=== PATIENT | female | born 1945 | race Caucasian/White ===

== ENCOUNTER 2016-12-14 14:47 | Emergency (ER) | payer OTHER ==
[2016-12-14] MEDS ORDERED: HYDROmorphONE/DILAUDID 1 MG/ML SYR IVP ONE (15:13)
--- NOTE | 2016-12-14 15:16 | EDPHY ---
H & P Stated Complaint: nontraumatic r shoulder and arm pain x 1 week/has lyphedema r/ t br cancer Time Seen by Provider: 12/14/16 14:59 HPI/ROS: CHIEF COMPLAINT: Right shoulder blade pain HISTORY OF PRESENT ILLNESS: Patient is a 71-year-old female with a remote history of bilateral breast cancer who comes to the emergency department complaining of right-sided scapular pain for the last week. She denies any trauma or falls. She states that it hurts particularly when she is lying down. She has not had any tingling numbness or weakness. She is ambulating without difficulty. No bowel or bladder abnormalities. Also hurts when she looks up. Some pain with movement of her arm. She denies chest pain or shortness of breath. She denies abdominal pain. No fevers. No GI symptoms. REVIEW OF SYSTEMS: Constitutional: denies: chills, fever, recent illness, recent injury EENTM: denies: blurred vision, double vision, nose congestion Respiratory: denies: cough, shortness of breath Cardiac: denies: chest pain, irregular heart rate, lightheadedness, palpitations Gastrointestinal/Abdominal: denies: abdominal pain, diarrhea, nausea, vomiting, blood streaked stools Genitourinary: denies: dysuria, frequency, hematuria, pain Musculoskeletal: See HPI Skin: denies: lesions, rash, jaundice, bruising Neurological: denies: headache, numbness, paresthesia, tingling, dizziness, weakness Hematologic/Lymphatic: denies: blood clots, easy bleeding, easy bruising Immunologic/allergic: denies: HIV/AIDS, transplant EXAM: GENERAL: Well-appearing, well-nourished and in no acute distress. HEAD: Atraumatic, normocephalic. EYES: Pupils equal round and reactive to light, extraocular movements intact, sclera anicteric, conjunctiva are normal. ENT: TMs normal, nares patent, oropharynx clear without exudates. Moist mucous membranes. NECK: Normal range of motion, supple without lymphadenopathy or JVD. LUNGS: Breath sounds clear to auscultation bilaterally and equal. No wheezes rales or rhonchi. HEART: Regular rate and rhythm without murmurs, rubs or gallops. ABDOMEN: Soft, nontender, normoactive bowel sounds. No guarding, no rebound. No masses appreciated. BACK: No CVA tenderness, no spinal tenderness, step-offs or deformities EXTREMITIES: Normal range of motion, mild edema right arm which is baseline secondary to surgery, pain behind shoulder blade, exacerbated slightly with movements. No pain at rest unless she is lying flat which is the worst position for her. No clubbing or cyanosis. NEUROLOGICAL: Cranial nerves II through XII grossly intact. Normal speech, normal gait. 5/5 strength, normal movement in all extremities, normal sensation PSYCH: Normal mood, normal affect. SKIN: Warm, dry, normal turgor, no visible rashes or lesions. Source: Patient Exam Limitations: No limitations - Personal History Current Tetanus/Diphtheria Vaccine: Yes Tetanus Vaccine Date: <10 YRS - Medical/Surgical History Hx Asthma: No Hx Chronic Respiratory Disease: No Hx Diabetes: No Hx Cardiac Disease: No Hx Renal Disease: No Hx Cirrhosis: No Hx Alcoholism: No Hx HIV/AIDS: No Hx Splenectomy or Spleen Trauma: No Other PMH: PMH: hypothyroid, thyroid CA,Breast ca/choly,. PSH:rigth hip replacementspinal fusion, - Family History Significant Family History: No pertinent family hx - Social History Smoking Status: Light smoker Alcohol Use: Sober Drug Use: None Constitutional: Initial Vital Signs Temperature (C) 36.5 C 12/14/16 14:52 Heart Rate 96 12/14/16 14:52 Respiratory Rate 17 12/14/16 14:52 Blood Pressure 126/80 H 12/14/16 14:52 O2 Sat (%) 94 12/14/16 14:52 O2 Delivery Mode Room Air Allergies/Adverse Reactions: Hgkqyto-Lmy-Tfc Reductase Inhibitor Allergy (Severe, Verified 12/14/16 14:50) MUSCLE/ JOINT PAIN scopolamine Allergy (Verified 12/14/16 14:50) Other-Enter Comments MAXIDE Allergy (Severe, Uncoded 07/02/12 12:41) ACUTE KIDNEY FAILURE Home Medications: Medication Instructions Recorded Omeprazole [Prilosec 20 mg] 40 mg PO DAILY 05/15/14 Acetaminophen [Tylenol 325mg (*)] 325 - 650 mg PO Q4 PRN #0 tab 07/20/15 FLUoxetine [Prozac 20 MG (*)] 40 mg PO DAILY #0 cap 07/20/15 Ibuprofen [Motrin (*)] 600 mg PO Q6 PRN #0 tab 07/20/15 Levothyroxine [Synthroid 137 mcg 137 mcg PO DAILY #0 tab 07/20/15 (*)] Valsartan [Diovan (*)] 320 mg PO DAILY #0 tab 07/20/15 Hydrocodone/APAP 5/325 [[place] 1 - 2 tab PO Q4H PRN #14 tab 12/14/16 5/325 (RX)] Medical Decision Making - Diagnostics EKG Interpretation: An EKG obtained and was read and documented in trace view. Please see trace view for full reading and report. Sinus rhythm, right axis deviation, unchanged from previous Imaging Results: Imaging Impressions Cervical Spine MRI 12/14/16 15:12 Impression: Multilevel degenerative disk and degenerative joint disease cervical spine. The most significant level is at C6-C7 where there is a right lateral protrusion, osteophytosis, and uncovertebral joint hypertrophy causing severe right neural foraminal narrowing. Results called and discussed with Naun Wei at 1710 hours 14 December 2016. Thoracic Spine MRI 12/14/16 15:12 Impression: 1. No evidence for metastatic disease. 2. Benign dural calcifications posteriorly at T9-T10 with no evidence for abnormal enhancement. 3. No significant spinal canal or neural foraminal encroachment in the thoracic spine. Results called and discussed with Naun Wei MD on December 14, 2016 at 1712 hours. Imaging: Discussed imaging studies w/ call box wirer Radiologist ED Course/Re-evaluation: 5:15 p.m. we discussed the imaging results. The patient and are reassured. I will treat her with pain medication until her follow-up appointment on Friday with spine [place]. She ready gets injections in her knees and occasion her back for other conditions. We discussed indications for returning here. Differential Diagnosis: Partial list of the Differential diagnosis considered include but were not limited to; degenerative disc disease, neuropathy, radiculopathy, rotator cuff injury, contusion and although unlikely based on the history and physical exam, I also considered fracture, PE, acute coronary disease. I discussed these differential diagnoses and the plan with the patient as well as the usual and expected course. The patient understands that the diagnosis is provisional and that in medicine we are not always correct and that further workup is often warranted. Usual and customary warnings were given. All of the patient's questions were answered. The patient was instructed to return to the emergency department should the symptoms at all worsen or return, otherwise to followup with the physician as we discussed. - Data Points Laboratory Results: Laboratory Results 12/14/16 15:40 12/14/16 15:40 12/14/16 12/14/16 15:40 15:40 WBC 5.53 10^3/uL 10^3/uL (3.80-9.50) RBC 4.12 10^6/uL L 10^6/uL (4.18-5.33) Hgb 13.6 g/dL g/dL (12.6-16.3) Hct 39.6 % % (38.0-47.0) MCV 96.1 fL fL (81.5-99.8) MCH 33.0 pg pg (27.9-34.1) MCHC 34.3 g/dL g/dL (32.4-36.7) RDW 13.3 % % (11.5-15.2) Plt Count 233 10^3/uL 10^3/uL (150-400) MPV 9.4 fL fL (8.7-11.7) Neut % (Auto) 65.0 % % (39.3-74.2) Lymph % (Auto) 22.1 % % (15.0-45.0) [place] % (Auto) 6.5 % % (4.5-13.0) Eos % (Auto) 5.1 % % (0.6-7.6) Baso % (Auto) 0.9 % % (0.3-1.7) Nucleat RBC Rel Count 0.0 % % (0.0-0.2) Absolute Neuts (auto) 3.60 10^3/uL 10^3/uL (1.70-6.50) Absolute Lymphs (auto) 1.22 10^3/uL 10^3/uL (1.00-3.00) Absolute Monos (auto) 0.36 10^3/uL 10^3/uL (0.30-0.80) Absolute Eos (auto) 0.28 10^3/uL 10^3/uL (0.03-0.40) Absolute Basos (auto) 0.05 10^3/uL 10^3/uL (0.02-0.10) Absolute Nucleated RBC 0.00 10^3/uL 10^3/uL (0-0.01) Immature Gran % 0.4 % % (0.0-1.1) Immature Gran # 0.02 10^3/uL 10^3/uL (0.00-0.10) Sodium 136 mEq/L mEq/L (134-144) Potassium 4.4 mEq/L mEq/L (3.5-5.2) Chloride 107 mEq/L mEq/L (97-110) Carbon Dioxide 19 mEq/l L mEq/l (22-31) Anion Gap 10 mEq/L mEq/L (8-16) BUN 23 mg/dL mg/dL (7-23) Creatinine 1.2 mg/dL H mg/dL (0.6-1.0) Estimated GFR 44 Glucose 126 mg/dL H mg/dL (70-100) Calcium 8.5 mg/dL mg/dL (8.5-10.4) Troponin I < 0.012 ng/mL ng/mL (0-0.034) Medications Given: Discontinued Medications Hydrocodone Bitart/Acetaminophen ([place] 5/325mg Prepack#6) 1 btl TAKEHOME EDNOW ONE Stop: 12/14/16 17:53 Last Admin: 12/14/16 17:53 Dose: 1 btl Hydromorphone HCl (Dilaudid) 0.5 mg IVP EDNOW ONE Stop: 12/14/16 15:14 Last Admin: 12/14/16 15:43 Dose: Not Given Departure - Departure Disposition: Home, Routine, Self-Care Clinical Impression: Degenerative disc disease, cervical Condition: Fair Instructions: Degenerative Disc Disease (ED) Referrals: Kim Peterson MD [Primary Care Provider] - As per Instructions Enoc Hurley MD [Medical Doctor] - As per Instructions Prescriptions: Hydrocodone/APAP 5/325 [Franklin 5/325 (RX)] 1 - 2 tab PO Q4H PRN #14 tab PRN Reason: Pain, Moderate
--- NOTE | 2016-12-14 15:35 | CPEKG ---
Heart Rate: 90 RR Interval: 667 P-R Interval: 160 QRSD Interval: 100 QT Interval: 388 QTC Interval: 475 P [place]: 71 QRS [place]: 105 T Wave [place]: 4 EKG Severity - BORDERLINE ECG - EKG Impression: SINUS RHYTHM EKG Impression: PROBABLE LEFT ATRIAL ABNORMALITY EKG Impression: RIGHT AXIS DEVIATION EKG Impression: Similar to previous Electronically Signed By: Naun Wei 14-Dec-2016 15:53:11
[2016-12-14 15:48] LABS: % IMMATURE GRANULYOCYTES 0.4 % (0.0-1.1); ABSOLUTE IMMATURE GRANULOCYTES 0.02 10^3/uL (0.00-0.10); ADD DIFF? NO; ADD MORPH? NO; ADD SCAN? NO; ATYPICAL LYMPHOCYTE FLAG 10 (0-99); FRAGMENT RBC FLAG 0 (0-99); HEMATOCRIT 39.6 % (38.0-47.0); HEMOGLOBIN 13.6 g/dL (12.6-16.3); LEFT SHIFT FLG 0 (0-99); LIPEMIA HEMOLYSIS FLAG 90 (0-99); MEAN CELL HEMOGLOBIN CONCENTR. 34.3 g/dL (32.4-36.7); MEAN CELL VOLUME 96.1 fL (81.5-99.8); MEAN PLATELET VOLUME 9.4 fL (8.7-11.7); PLATELET CLUMPS FLAG 0 (0-99); PLATELET COUNT 233 10^3/uL (150-400); RED BLOOD CELL COUNT 4.12 10^6/uL (4.18-5.33); RED CELL DISTRIBUTION WIDTH 13.3 % (11.5-15.2)
[2016-12-14 16:08] LABS: POTASSIUM 4.4 mEq/L (3.5-5.2)
[2016-12-14 16:09] LABS: ANION GAP 10 mEq/L (8-16); CALCIUM 8.5 mg/dL (8.5-10.4); CARBON DIOXIDE 19 mEq/l (22-31); CHLORIDE 107 mEq/L (97-110); CREATININE 1.2 mg/dL (0.6-1.0); GLOMERULAR FILTRATION RATE 44; GLUCOSE 126 mg/dL (70-100); SODIUM 136 mEq/L (134-144)
[2016-12-14 16:20] LABS: TROPONIN I < 0.012 ng/mL (0-0.034)
[2016-12-14] MEDS ORDERED: GADOBUTROL 10 ML VIAL IVP ONE (16:43)
[2016-12-14 17:07] VITALS: O2SAT 95
[2016-12-14] MEDS ORDERED: HYDROCOD/APAP 5/325 PREPACK#6 BTL TAKEHOME ONE ×2 (17:50→17:52)
[2016-12-14 17:55] VITALS: BP 145/86; PULSE 81; RESP 16; TEMP 98.4
== END 2016-12-14 17:53 | disposition home or self-care (01) ==
DX: M50.30 Other cervical disc degeneration, unspecified cervical region (principal); F17.200 Nicotine dependence, unspecified, uncomplicated; Z85.3 Personal history of malignant neoplasm of breast; Z85.850 Personal history of malignant neoplasm of thyroid
CPT/HCPCS: 86300-90; A9585

== ENCOUNTER → 2016-12-26 | Outpatient (CLI) | payer OTHER | LOC: FIMAGING 09:50 | PROVIDERS: ATTEND Physician Assistant | DX: Z13.820 Encounter for screening for osteoporosis (principal); Z78.0 Asymptomatic menopausal state; C50.919 Malignant neoplasm of unspecified site of unspecified female breast ==

== ENCOUNTER → 2017-02-23 | Outpatient (CLI) | payer OTHER | LOC: BMCIMAGING 11:59 | PROVIDERS: ATTEND Emergency Medicine | DX: R05 Cough (principal); R09.89 Other specified symptoms and signs involving the circulatory and respiratory systems ==

== ENCOUNTER 2017-06-09 17:23 | Emergency (ER) | payer OTHER ==
[2017-06-09 17:36] VITALS: O2SAT 96
--- NOTE | 2017-06-09 18:21 | EDPHY ---
H & P Stated Complaint: Soreness R calf today;no trauma; sent to have US Time Seen by Provider: 06/09/17 17:44 HPI/ROS: CHIEF COMPLAINT: Right calf pain HISTORY OF PRESENT ILLNESS: The patient presents to the ED for evaluation of a 1 day history of right calf pain. The patient does have a history of superficial thrombophlebitis but denies history of DVT. The patient has a history of prior cancer including breast and thyroid. These have been treated. The patient denies any chest pain or shortness of breath. She denies fever, cough or congestion. She denies acute numbness or weakness. The patient has no history of trauma. The patient does complain of moderate tenderness to palpation along the medial aspect of her right calf. REVIEW OF SYSTEMS: A comprehensive 10 point review of systems is otherwise negative aside from elements mentioned in the history of present illness. Source: Patient Exam Limitations: No limitations - Personal History Tetanus Vaccine Date: <10 YRS - Medical/Surgical History Hx Asthma: No Hx Chronic Respiratory Disease: No Hx Diabetes: No Hx Cardiac Disease: No Hx Renal Disease: No Hx Cirrhosis: No Hx Alcoholism: No Hx HIV/AIDS: No Hx Splenectomy or Spleen Trauma: No Other PMH: hypothyroid, thyroid CA,Breast ca/choly,. right hip replacementspinal fusion, arthritis - Social History Smoking Status: Current every day smoker - Physical Exam Exam: General Appearance: Alert, no distress Eyes: Pupils equal and round no pallor or injection ENT, Mouth: Mucous membranes moist Respiratory: There are no retractions, lungs are clear to auscultation Cardiovascular: Regular rate and rhythm Gastrointestinal: Abdomen is soft and nontender, no masses, bowel sounds normal Neurological: A&O, normal motor function, normal sensory exam, normal cranial nerves Skin: Warm and dry, no rashes Musculoskeletal: Neck is supple nontender Extremities: Mild tenderness to palpation along the medial aspect of the right calf which appears to be most consistent with a superficial venous thrombosis. Psychiatric: Patient is oriented X 3, there is no agitation Constitutional: Initial Vital Signs Temperature (C) 36.6 C 06/09/17 17:32 Heart Rate 88 06/09/17 17:32 Respiratory Rate 18 06/09/17 17:32 Blood Pressure 148/70 H 06/09/17 17:32 O2 Sat (%) 96 06/09/17 17:32 O2 Delivery Mode Room Air Allergies/Adverse Reactions: scopolamine Allergy (Intermediate, Verified 06/09/17 17:31) Other-Enter Comments Atbfqkh-Bia-Frl Reductase Inhibitor Allergy (Intermediate, Verified 06/09/17 17: 31) MUSCLE/ JOINT PAIN MAXIDE Allergy (Severe, Uncoded 07/02/12 12:41) ACUTE KIDNEY FAILURE Home Medications: Medication Instructions Recorded Diclofenac Sodium [Voltaren 75 MG 75 mg PO 06/09/17 (*)] FLUoxetine [Prozac 10 MG (*)] 06/09/17 Levothyroxine [Synthroid 100 mcg 100 mcg PO DAILY06 06/09/17 (*)] Omeprazole [Prilosec 20 mg] 20 mg PO DAILY 06/09/17 Valsartan [Diovan (*)] 40 mg PO 06/09/17 Medical Decision Making - Diagnostics Imaging Results: Right lower extremity ultrasound: Images reviewed by myself and discussed with radiologist, superficial thrombophlebitis noted. No evidence of DVT. ED Course/Re-evaluation: The patient presents to the ED with obvious superficial venous thrombophlebitis. She does have some deeper calf tenderness and a stat ultrasound of the extremity was ordered to exclude DVT. The patient was noted to be neurologically intact. She has brisk pulses noted in her dorsalis pedis and posterior tibial pulses. The patient has no clinical evidence of a significant cellulitis or abscess. The patient has superficial thrombophlebitis noted on her ultrasound. She has no evidence of a DVT. Patient has been advised to use NSAIDs for management of pain in addition to hot compress and ice packs. She is advised to return to the emergency department for repeat ultrasound in 2 weeks for any worsening pain, persistent swelling or other concerns. Differential Diagnosis: Differential diagnosis considered includes superficial thrombophlebitis, DVT, cellulitis, abscess Departure - Departure Disposition: Home, Routine, Self-Care Clinical Impression: Superficial phlebitis of right leg Condition: Good Instructions: Superficial Thrombophlebitis (ED) Additional Instructions: 1. Take Ibuprofen or Motrin 600 mg by mouth three times a day. 2. Warm compresses and ice pack as needed for comfort. 3. Your ultrasound demonstrates no evidence of a deep vein thrombosis. You have superficial phlebitis. 4. Please return for a repeat ultrasound in 2 weeks for any worsening calf pain , swelling or persistent pain. Referrals: Kim Peterson MD [Primary Care Provider] - As per Instructions
[2017-06-09 19:35] VITALS: BP 146/89; PULSE 67; RESP 19; TEMP 98.2
== END 2017-06-09 19:35 | disposition home or self-care (01) ==
DX: I80.01 Phlebitis and thrombophlebitis of superficial vessels of right lower extremity (principal); F17.200 Nicotine dependence, unspecified, uncomplicated; Z85.3 Personal history of malignant neoplasm of breast

== ENCOUNTER 2017-07-07 08:28 | Observation (INO) | payer OTHER ==
--- NOTE | 2017-07-07 08:33 | EDPHY ---
H & P Time Seen by Provider: 07/07/17 08:33 HPI/ROS: CHIEF COMPLAINT: Right leg pain HISTORY OF PRESENT ILLNESS: The patient presents to the ED with acute right leg pain. The patient reportedly developed acute right thigh pain after she stood up from the toilet earlier today. The patient does have a prior history of a right hip replacement. The patient denies any fall or trauma. The patient denies acute numbness or weakness. She has moderate pain with any attempted ambulation in her right leg. The patient is not anticoagulated. The patient has not been able to weight bear since the injury. REVIEW OF SYSTEMS: A comprehensive 10 point review of systems is otherwise negative aside from elements mentioned in the history of present illness. Source: Patient Exam Limitations: No limitations - Personal History Tetanus Vaccine Date: <10 YRS - Medical/Surgical History Hx Asthma: No Hx Chronic Respiratory Disease: No Hx Diabetes: No Hx Cardiac Disease: No Hx Renal Disease: No Hx Cirrhosis: No Hx Alcoholism: No Hx HIV/AIDS: No Hx Splenectomy or Spleen Trauma: No Other PMH: hypothyroid, thyroid CA,Breast ca/choly,. right hip replacementspinal fusion, arthritis - Social History Smoking Status: Current every day smoker - Physical Exam Exam: General Appearance: Alert, no distress Eyes: Pupils equal and round no pallor or injection ENT, Mouth: Mucous membranes moist Respiratory: There are no retractions, lungs are clear to auscultation Cardiovascular: Regular rate and rhythm Gastrointestinal: Abdomen is soft and nontender, no masses, bowel sounds normal Neurological: A&O, normal motor function, normal sensory exam, normal cranial nerves Skin: Warm and dry, no rashes Musculoskeletal: Neck is supple nontender Extremities: Tenderness to palpation noted along the medial aspect of the right thigh, no palpable deformity, 2+ dorsalis pedis and posterior tibial pulse noted bilaterally Constitutional: Initial Vital Signs Temperature (C) 36.7 C 07/07/17 08:34 Heart Rate 83 07/07/17 08:34 Respiratory Rate 16 07/07/17 08:34 Blood Pressure 147/71 H 07/07/17 08:34 O2 Sat (%) 94 07/07/17 08:34 O2 Delivery Mode Room Air Allergies/Adverse Reactions: scopolamine Allergy (Intermediate, Verified 06/09/17 17:31) Other-Enter Comments Vktwceg-Dxb-Qcc Reductase Inhibitor Allergy (Intermediate, Verified 06/09/17 17: 31) MUSCLE/ JOINT PAIN MAXIDE Allergy (Severe, Uncoded 07/02/12 12:41) ACUTE KIDNEY FAILURE Home Medications: Medication Instructions Recorded Omeprazole [Prilosec 20 mg] 20 mg PO DAILY 06/09/17 Acetaminophen [Tylenol 325mg (*)] 325 mg PO DAILY PRN 07/07/17 Cholecalciferol Vit D3 [Vitamin D3 2,000 units PO DAILY 07/07/17 2000 units tab (OTC)] Cyanocobalamin [Vitamin B12 (*)] 1,000 mcg PO DAILY 07/07/17 Fluoxetine HCl [Prozac 40 mg] 40 mg PO DAILY 07/07/17 Levothyroxine [Synthroid 137 mcg 137 mcg PO DAILY06 07/07/17 (*)] Propylene Glycol/Peg 400 [Systane 1 drop EACHEYE DAILY PRN 07/07/17 0.3-0.4% Eye Drops] Valsartan/Hydrochlorothiazide 1 each PO DAILY 07/07/17 [Valsartan-Hctz 80-12.5 mg Tab] Medical Decision Making - Diagnostics Imaging Results: Imaging Impressions Femur X-Ray 07/07/17 08:52 Impression: 1. No definite fracture notified 2. Subtle contour regularity of the medial right inferior pubic ramus, which could be projectional or posttraumatic. 3. Increased osteoarthritis in the knee. Findings discussed with Margarito Gagnon 07/07/2017 at 9:30. ED Course/Re-evaluation: The patient presents to the ED with complaints of right thigh pain following an injury she sustained while standing up. The patient has palpable tenderness along her right quadriceps. The patient's extensor mechanism is intact. She is unable to hold her leg in full extension secondary to pain. The patient was noted to be neurovascularly intact throughout the right lower extremity. The patient was taken for an x-ray which demonstrated no evidence of a femur fracture or hardware failure. The patient had an IV established. She received half a mg of Ativan, 1 gm of acetaminophen and a lidocaine patch. The patient is unable to ambulate secondary to pain is clearly a fall risk. I do feel that she will require admission to the hospital for in-patient PT OT evaluation and possible orthopedic consultation. Consultation was made with the hospitalist service at 9:40 a.m.. She will be admitted by Dr. Espinosa. Differential Diagnosis: Differential diagnosis considered includes periprosthetic fracture, extensor mechanism injury, quadriceps muscle strain - Data Points Laboratory Results: Laboratory Results 07/07/17 09:30 07/07/17 09:30 07/07/17 07/07/17 09:30 09:30 WBC 5.31 10^3/uL 10^3/uL (3.80-9.50) RBC 4.42 10^6/uL 10^6/uL (4.18-5.33) Hgb 14.7 g/dL g/dL (12.6-16.3) Hct 41.6 % % (38.0-47.0) MCV 94.1 fL fL (81.5-99.8) MCH 33.3 pg pg (27.9-34.1) MCHC 35.3 g/dL g/dL (32.4-36.7) RDW 13.8 % % (11.5-15.2) Plt Count 250 10^3/uL 10^3/uL (150-400) MPV 9.2 fL fL (8.7-11.7) Neut % (Auto) 73.7 % % (39.3-74.2) Lymph % (Auto) 14.7 % L % (15.0-45.0) [place] % (Auto) 7.5 % % (4.5-13.0) Eos % (Auto) 2.8 % % (0.6-7.6) Baso % (Auto) 0.9 % % (0.3-1.7) Nucleat RBC Rel Count 0.0 % % (0.0-0.2) Absolute Neuts (auto) 3.91 10^3/uL 10^3/uL (1.70-6.50) Absolute Lymphs (auto) 0.78 10^3/uL L 10^3/uL (1.00-3.00) Absolute Monos (auto) 0.40 10^3/uL 10^3/uL (0.30-0.80) Absolute Eos (auto) 0.15 10^3/uL 10^3/uL (0.03-0.40) Absolute Basos (auto) 0.05 10^3/uL 10^3/uL (0.02-0.10) Absolute Nucleated RBC 0.00 10^3/uL 10^3/uL (0-0.01) Immature Gran % 0.4 % % (0.0-1.1) Immature Gran # 0.02 10^3/uL 10^3/uL (0.00-0.10) Sodium 140 mEq/L mEq/L (134-144) Potassium 4.5 mEq/L mEq/L (3.5-5.2) Chloride 107 mEq/L mEq/L (97-110) Carbon Dioxide 24 mEq/l mEq/l (22-31) Anion Gap 9 mEq/L mEq/L (8-16) BUN 18 mg/dL mg/dL (7-23) Creatinine 1.0 mg/dL mg/dL (0.6-1.0) Estimated GFR 54 Glucose 111 mg/dL H mg/dL (70-100) Calcium 8.9 mg/dL mg/dL (8.5-10.4) Medications Given: Discontinued Medications Acetaminophen (Tylenol) 1,000 mg PO EDNOW ONE Stop: 07/07/17 09:38 Last Admin: 07/07/17 09:48 Dose: 1,000 mg Ibuprofen (Motrin) 600 mg PO EDNOW ONE Stop: 07/07/17 09:42 Last Admin: 07/07/17 09:48 Dose: 600 mg Lidocaine (Lidoderm 5%) 1 ea TD EDNOW ONE Stop: 07/07/17 09:38 Last Admin: 07/07/17 09:49 Dose: 1 ea Lorazepam (Ativan Injection) 0.5 mg IVP EDNOW ONE Stop: 07/07/17 09:38 Last Admin: 07/07/17 09:49 Dose: 0.5 mg Departure - Departure Disposition: [facility] Inpatient Acute Clinical Impression: Injury of quadriceps muscle Condition: Good
[2017-07-07] MEDS ORDERED: ACETAMINOPHEN 500 MG TAB PO ONE (09:37)
[2017-07-07] MEDS ORDERED: LORazepam 2 MG/ML INJ IVP ONE (09:37)
[2017-07-07] MEDS ORDERED: LIDOCAINE 5% 1 EA PATCH TD ONE (09:37)
[2017-07-07] MEDS ORDERED: IBUPROFEN 200 MG TAB PO ONE (09:41)
[2017-07-07 09:43] LABS: PLATELET COUNT 250 10^3/uL (150-400)
--- NOTE | 2017-07-07 11:26 | PDGENHP ---
History and Physical - Chief Complaint right knee pain - History of Present Illness 72 y/o female with history of Right knee OA presents with acute right knee pain. Attempted to stand while getting off the toilet this morning when she felt a pop in her right leg. She immediately had severe 10/10 sharp pain over her knee. She does think that she felt a pop with standing. She was unable to bear weight. She has otherwise been in her usual state health. She denies any symptom falls. History Information - Allergies/Home Medication List Allergies/Adverse Reactions: scopolamine Allergy (Intermediate, Verified 06/09/17 17:31) Other-Enter Comments Noiztjn-Cta-Gxb Reductase Inhibitor Allergy (Intermediate, Verified 06/09/17 17: 31) MUSCLE/ JOINT PAIN MAXIDE Allergy (Severe, Uncoded 07/02/12 12:41) ACUTE KIDNEY FAILURE Home Medications: Omeprazole [Prilosec 20 mg] 20 mg PO DAILY 06/09/17 [Last Taken 07/06/17] Acetaminophen [Tylenol 325mg (*)] 325 mg PO DAILY PRN 07/07/17 [Last Taken Unknown] Cholecalciferol Vit D3 [Vitamin D3 2000 units tab (OTC)] 2,000 units PO DAILY [Last Taken 07/06/17] Cyanocobalamin [Vitamin B12 (*)] 1,000 mcg PO DAILY 07/07/17 [Last Taken ] Fluoxetine HCl [Prozac 40 mg] 40 mg PO DAILY 07/07/17 [Last Taken 07/06/17] Levothyroxine [Synthroid 137 mcg (*)] 137 mcg PO DAILY06 07/07/17 [Last Taken ] Propylene Glycol/Peg 400 [Systane 0.3-0.4% Eye Drops] 1 drop EACHEYE DAILY PRN 07/07/17 [Last Taken Unknown] Valsartan/Hydrochlorothiazide [Valsartan-Hctz 80-12.5 mg Tab] 1 each PO DAILY [Last Taken 07/06/17] I have personally reviewed and updated: family history, medical history, social history - Past Medical History GERD Additional medical history: hypothyroid, depression, thyroid cancer, breast cancer - Surgical History Reports: cholecystectomy, thyroid surgery (total thyroidectomy) Additional surgical history: mastectomy x2, right wilder, l4/l5 fusion - Family History Positive for: diabetes type I (father), CAD (brother), hypertension (mother) - Social History Smoking Status: Heavy smoker (1/2 ppd) Alcohol Use: Other (gin and tonic nightly) Drug Use: None Additional social history: [facility] . house has stairs Review of Systems Review of Systems: ROS: 10pt was reviewed & negative except for what was stated in HPI & below Physical Exam Physical Exam: Temp Pulse Resp BP Pulse Ox 36.6 C 75 18 139/69 H 95 07/07/17 11:05 07/07/17 11:05 07/07/17 11:05 07/07/17 11:05 07/07/17 11:05 Constitutional: no apparent distress, appears nourished, not in pain Eyes: PERRL, anicteric sclera, EOMI Ears, Nose, Mouth, Throat: moist mucous membranes, hearing normal, ears appear normal, no oral mucosal ulcers Cardiovascular: regular rate and rhythym, no murmur, rub, or gallop, No edema Respiratory: no respiratory distress, no rales or rhonchi, clear to auscultation Gastrointestinal: normoactive bowel sounds, soft, non-tender abdomen, no palpable masses Genitourinary: no bladder fullness, no bladder tenderness Skin: warm, normal color, no rashes or abrasions, no fluctuance, no induration, No mottled Musculoskeletal: pain with ROM (Right knee), abnormal gait, other (The patella is in place with pain over the vastus medialis and lateralis at the knee) Neurologic: AAOx3, CN II-XII Intact, No facial droop Psychiatric: interacting appropriately, not anxious, not encephalopathic, thought process linear Lymph, Heme, Immunologic: no cervical LAD, no supraclavicular LAD Lab Data & Imaging Review 07/07/17 09:30 07/07/17 09:30 WBC 5.31 10^3/uL (3.80-9.50) 07/07/17 09:30 RBC 4.42 10^6/uL (4.18-5.33) 07/07/17 09:30 Hgb 14.7 g/dL (12.6-16.3) 07/07/17 09:30 Hct 41.6 % (38.0-47.0) 07/07/17 09:30 MCV 94.1 fL (81.5-99.8) 07/07/17 09:30 MCH 33.3 pg (27.9-34.1) 07/07/17: MCHC 35.3 g/dL (32.4-36.7) 07/07/17: RDW 13.8 % (11.5-15.2) 07/07/17: Plt Count 250 10^3/uL (150-400) 07/07/17:30 MPV 9.2 fL (8.7-11.7) 07/07/17:30 Neut % (Auto) 73.7 % (39.3-74.2) 07/07/17: Lymph % (Auto) 14.7 % (15.0-45.0) L 07/07/17: [place] % (Auto) 7.5 % (4.5-13.0) 07/07/17:30 Eos % (Auto) 2.8 % (0.6-7.6) 07/07/17:30 Baso % (Auto) 0.9 % (0.3-1.7) 07/07/17: Nucleat RBC Rel Count 0.0 % (0.0-0.2) 07/07/17:30 Absolute Neuts (auto) 3.91 10^3/uL (1.70-6.50) 07/07/17:30 Absolute Lymphs (auto) 0.78 10^3/uL (1.00-3.00) L 07/07/17:30 Absolute Monos (auto) 0.40 10^3/uL (0.30-0.80) 07/07/17:30 Absolute Eos (auto) 0.15 10^3/uL (0.03-0.40) 07/07/17:30 Absolute Basos (auto) 0.05 10^3/uL (0.02-0.10) 07/07/17:30 Absolute Nucleated RBC 0.00 10^3/uL (0-0.01) 07/07/17: Immature Gran % 0.4 % (0.0-1.1) 07/07/17 09:30 Immature Gran # 0.02 10^3/uL (0.00-0.10) 07/07/17 09:30 Sodium 140 mEq/L (134-144) 07/07/17 09:30 Potassium 4.5 mEq/L (3.5-5.2) 07/07/17 09:30 Chloride 107 mEq/L (97-110) 07/07/17:30 Carbon Dioxide 24 mEq/l (22-31) 07/07/17 09:30 Anion Gap 9 mEq/L (8-16) 07/07/17 09:30 BUN 18 mg/dL (7-23) 07/07/17:30 Creatinine 1.0 mg/dL (0.6-1.0) 07/07/17 09:30 Estimated GFR 54 07/07/17:30 Glucose 111 mg/dL (70-100) H 07/07/17 09:30 Calcium 8.9 mg/dL (8.5-10.4) 07/07/17 09:30 Visualized and Interpreted imaging results: Yes Interpretation: Right knee x-ray was reviewed: Impression: 1. No definite fracture notified. 2. Subtle contour regularity of the medial right inferior pubic ramus, which could be projectional. or posttraumatic. 3. Increased osteoarthritis in the knee. Assessment & Plan Assessment: This is a 72-year-old female presenting with: # inability to ambulate due to severe right knee pain which I suspect is due to an injury to the vastus lateralis or medialis -elevate, compress, ice, NSAIDs -I have a call into Dr. Goddard from Ortho for further evaluation. -will plan for an MRI of the knee to further evaluate from muscle injury Patient will be admitted to the hospital under inpatient status was not able to discharge due to severe pain and disability Patient is high risk for VTE and will start Lovenox for DVT prophylaxis
[2017-07-07] MEDS ORDERED: ACETAMINOPHEN 325 MG TAB PO PRN ×2 (11:45→11:48)
[2017-07-07] MEDS ORDERED: ONDANSETRON 4 MG/2 ML VIAL IVP PRN (11:45)
[2017-07-07] MEDS ORDERED: Propylene Glycol/Peg 400 [Systane 0.3-0.4% Eye Drops] 1 DROP EACHEYE PRN (11:48)
[2017-07-07] MEDS: IBUPROFEN 600 MG TAB PO SCH ×3 (13:07→20:49)
[2017-07-07] MEDS: oxyCODONE IR 5 MG TAB PO PRN ×2 (13:07→22:50)
[2017-07-07 15:22] VITALS: RESP 16
[2017-07-07] MEDS ORDERED: PATCH REMOVAL 1 EA PATCH TD SCH (21:00)
[2017-07-07 22:39] VITALS: O2SAT 91
[2017-07-08] MEDS: IBUPROFEN 600 MG TAB PO SCH ×2 (05:39→12:40)
[2017-07-08] MEDS ORDERED: LEVOTHYROXINE 137 MCG TAB PO SCH (06:00)
[2017-07-08 08:46] VITALS: BP 141/79; TEMP 98.1
[2017-07-08] MEDS ORDERED: VALSARTAN/HCTZ 80-12.5MG TAB PO SCH (09:00)
[2017-07-08] MEDS ORDERED: CYANO/VITAMIN B12 1000 MCG TAB PO SCH (09:00)
[2017-07-08] MEDS ORDERED: CHOLECALCIFEROL VIT D3 2,000 UNITS TAB/CAP PO SCH (09:00)
[2017-07-08] MEDS ORDERED: FLUoxetine 20 MG CAP PO SCH (09:00)
[2017-07-08] MEDS ORDERED: PANTOPRAZOLE SODIUM 40 MG TAB PO SCH (09:00)
[2017-07-08] MEDS: ENOXAPARIN 40 MG/0.4 ML SYR SC SCH ×2 (09:11→11:03)
--- NOTE | 2017-07-08 15:41 | PDIAF ---
- Diagnosis Diagnosis: quad tear Code Status: Full Code - Medication Management Discharge Medications: Medications to Continue on Transfer Omeprazole [Prilosec 20 mg] 20 mg PO DAILY 06/09/17 [Last Taken 07/06/17] Acetaminophen [Tylenol 325mg (*)] 325 mg PO DAILY PRN 07/07/17 [Last Taken Unknown] Cholecalciferol Vit D3 [Vitamin D3 2000 units tab (OTC)] 2,000 units PO DAILY [Last Taken 07/06/17] Cyanocobalamin [Vitamin B12 (*)] 1,000 mcg PO DAILY 07/07/17 [Last Taken ] Fluoxetine HCl [Prozac 40 mg] 40 mg PO DAILY 07/07/17 [Last Taken 07/06/17] Levothyroxine [Synthroid 137 mcg (*)] 137 mcg PO DAILY06 07/07/17 [Last Taken ] Propylene Glycol/Peg 400 [SYSTANE 0.3-0.4% EYE DROPS] 1 drop EACHEYE DAILY PRN 07/07/17 [Last Taken Unknown] Valsartan/Hydrochlorothiazide [Valsartan-Hctz 80-12.5 mg Tab] 1 each PO DAILY [Last Taken 07/06/17] oxyCODONE IR [Oxycodone Ir (*)] 5 - 10 mg PO Q4 PRN #10 tab 07/08/17 [Last Taken Unknown] Discharge Medications: Refer to the Discharge Home Medication list for PRN reason. - Orders Services needed: Physical Therapy, Occupational Therapy Isolation Type: None Diet Recommendation: no restrictions on diet Diet Texture: Regular Texture Diet - Follow Up Care Current Providers and Referrals: Patient,NotPresent [Unknown] - As per Instructions
--- NOTE | 2017-07-08 16:00 | ASDISCHSUM ---
Discharge Information Plan Status:Home with Home Health Medically Cleared to Leave:07/07/2017 Discharge Date:07/08/2017 03:30 PM CM D/C Disposition: ADT D/C Disposition:Home, Routine, Self-Care Projected Discharge Date:07/08/2017 11:00 AM Transportation at D/C: Discharge Delay Reason: Follow-Up Date:07/08/2017 11:00 AM Discharge Slot: Final Diagnosis: Placement Information Referral Type:*Home Health Care Services Referral ID:[id number] Provider Name:[facility] Address 1:[address] [address] Address 2: City:[place] Selection Factors: State:[place] Patient Contact Information Contact Name:PATTI Relationship: Address:[address] City:[place] Alternate Phone: State/Zip Code:[place] [address] Email: Financial Information Financial Class:HMO and PPO Plans Primary Plan Desc:TAMIKO PPO Primary Plan Number:[id number] Secondary Plan Desc: Secondary Plan Number: Assessment Information Case Management Discharge Plan Note Case Management Discharge Discharge Order Complete? Answers: Yes Patient to Obtain Answers: via [facility] Transportation Arranged Answers: Family/Friends EMTALA Complete Answers: No Case Management Transport Answers: No Form Complete Faxed Final Orders Answers: Yes Agency/Facility Transfer Answers: Yes Report Printed & Faxed to Receiving Agency Family Notified Answers: Yes Discharge Comments Notes: CM spoke w/ Dr. Espinosa regarding d/c POC. Pt is a 72 y/o female admitted for a right quadricep muscle sprain. Pt is being discharged today. Pt does not need a surgical intervention. Therapies are recommending HC at this time. CM met w/ pt and for dispo planning. Both are agreeable to having HC. Referrals made to HC agencies. Family is able to accept. DC orders sent to [facility]. [facility] will contact family directly to schedule start of care. CM available for changes. Plan: [facility] for PT and OT Date Signed: 07/08/2017 03:59 PM Electronically Signed By:ROCÍO Ureña Intervention Information
[2017-07-08 16:49] VITALS: PULSE 81
--- NOTE | 2017-07-08 17:02 | GDS ---
[f rep st] DISCHARGE SUMMARY DISCHARGE DIAGNOSES: 1. Right leg pain and inability to ambulate due to below. 2. Partial tear of the vastus lateralis and mild partial tear of the rectus femoris. CONSULTANTS: Dr. Thaddeus Goddard. HOSPITAL COURSE AND STAY BY PROBLEM: Right leg pain: The patient presented to the hospital with acu te-onset right knee pain that began after standing up from the toilet. She felt a pop. She was plac ed on observation due to inability to ambulate and severe pain. An MRI of the lower extremity was do ne, which revealed a partial tear of the vastus lateralis and mild partial tear of the rectus femoris and vastus lateralis portion of the quadriceps tendon. The patient was placed in a knee immobilizer. She is doing better on day of discharge and feels well enough to go home. PHYSICAL EXAM: VITAL SIGNS: On day of discharge, blood pressure 141/79, pulse 75, respiratory rate 16, O2 saturation 91% on room air. Temperature afebrile. GENERAL: No acute distress. PERTINENT LAB AND STUDIES DONE ON THIS HOSPITAL STAY: Lower extremity MRI done 07/07/2017. Refer to report. DISCHARGE MEDICATIONS: Please refer to discharge medication reconciliation in [facility] for details. DISCHARGE INSTRUCTIONS: The patient will be discharged home where she should follow up with Dr. Ty Goddard or orthopedic surgeon of her choice. She should remain in the knee immobilizer. /[id number]/MODL
--- NOTE | 2017-07-08 19:42 | GCON ---
[f rep st] CONSULTATION DATE OF CONSULTATION: 07/08/2017 PRIMARY CARE PHYSICIAN: Gonzalo Espinosa DO CHIEF COMPLAINT: Right knee and leg pain. HISTORY OF PRESENT ILLNESS: The patient is a 72-year-old woman who has a longstanding history of art hritis to her right knee and right knee pain. She presented to the emergency department after gettin g off the toilet when she felt a pop in her right leg. She immediately had sharp pain over her right thigh and upper knee. She did not fall to the ground but she has been unable to bear weight. She d id have previous complaints of right knee pain associated with her arthritis and has been evaluated b y Dr. Ortiz in the past. PAST MEDICAL HISTORY: Reflux disease, hypothyroidism, thyroid and breast cancer. PAST SURGICAL HISTORY: A cholecystectomy, total thyroidectomy. She has had right total hip replacem ent and an L4-5 fusion, as well as mastectomy. SOCIAL HISTORY: She admits to tobacco use. She has occasional alcohol use. Denies any drug use. REVIEW OF SYSTEMS: Negative for any chest pain, shortness of breath, belly pain, back pain, numbness , tingling, other joint-related complaints. OBJECTIVE: GENERAL: This is a healthy woman who is pleasant and cooperative with examination. HEEN T: Normocephalic, atraumatic. EXTREMITIES: Focused examination of the right lower extremity reveal s an Morgan wrap which is removed. She has mild swelling over the distal right thigh. There are no kian gical incisions. She has a very mild effusion. She has diffuse tenderness across the distal thigh, more focused laterally extending into the lateral quadriceps tendon. There is no palpable defect. S he does have tenderness diffusely over the tibial tubercle. The patella is nontender focally to poin shannon tenderness. Range of motion is not assessed. She has no instability to varus or valgus stress. No discomfort in her calf. Intact ankle plantar flexion, dorsiflexion, EHL function. Review of her MRI of her knee demonstrates a muscular sprain and partial tearing of the vastus latera lis extending down to a partial tear of the distal lateral quadriceps tendon. This tear is primarily with the musculotendinous junction with surrounding soft tissue edema. She has advanced degenerativ e change in the patellofemoral compartment. She has degenerative features in the medial and lateral compartments of her knee as well. The patella is not high riding. IMPRESSION: Quadriceps tear/partial quadriceps tendon tear. TREATMENT PLAN: I have recommended a conservative approach with use of a straight leg immobilizer. She is weightbearing as tolerated. No range of motion. She may be weightbearing as tolerated in ext ension with the use of a walker for gait and mobility assistance. I would have her follow up in [address] Ortiz or myself for repeat evaluation at which time, I would begin a hinged knee brace, progressive range of motion in 30 degree increments until full range of motion has been joe red. She is to avoid any squatting, kneeling, strenuous activities across the knee. Seek attention f or increasing redness, swelling, drainage, or lower extremity pain/shortness of breath, and I have re commended that she take an aspirin a day given her increased risk for deep venous thrombosis. /[id number]/MODL
== END 2017-07-08 15:30 | disposition home or self-care (01) ==
LOC: EDUNIT# → F3E 10:45
PROVIDERS: ADMIT Family Medicine; ATTEND Family Medicine
DX: S76.111A Strain of right quadriceps muscle, fascia and tendon, initial encounter (principal); X50.9XXA Other and unspecified overexertion or strenuous movements or postures, initial encounter; E03.9 Hypothyroidism, unspecified; F17.200 Nicotine dependence, unspecified, uncomplicated
CPT/HCPCS: 73551; 73718; 97161; 97166; 97535; G0378; 96374; J1650; J2060

== ENCOUNTER → 2017-10-10 | Outpatient (CLI) | payer OTHER ==
[~2017-10-10] MED LIST: IOPAMIDOL (ISOVUE-300) 100 ML BTL ONE
== END ==
LOC: FIMAGING 10:29
PROVIDERS: ATTEND Internal Medicine
DX: K76.0 Fatty (change of) liver, not elsewhere classified (principal); K57.90 Diverticulosis of intestine, part unspecified, without perforation or abscess without bleeding; M51.36 Other intervertebral disc degeneration, lumbar region
CPT/HCPCS: Q9967

== ENCOUNTER → 2017-10-10 | Outpatient (CLI) | payer OTHER | LOC: BMCIMAGING 15:56 | PROVIDERS: ATTEND Internal Medicine | DX: I82.411 Acute embolism and thrombosis of right femoral vein (principal); I82.431 Acute embolism and thrombosis of right popliteal vein ==

== ENCOUNTER → 2017-12-09 | Outpatient (CLI) | payer OTHER, MEDICARE | LOC: BMCIMAGING 12:55 | PROVIDERS: ATTEND Family Medicine | DX: J98.4 Other disorders of lung (principal) ==

== ENCOUNTER → 2018-03-12 | Outpatient (CLI) | payer OTHER, MEDICARE | LOC: BMCIMAGING 14:11 | PROVIDERS: ATTEND Internal Medicine | DX: I82.413 Acute embolism and thrombosis of femoral vein, bilateral (principal); I82.431 Acute embolism and thrombosis of right popliteal vein; Z79.01 Long term (current) use of anticoagulants ==

== ENCOUNTER → 2018-05-11 | Outpatient (CLI) | payer OTHER, MEDICARE | LOC: BMCIMAGING 14:57 | PROVIDERS: ATTEND Internal Medicine | DX: I82.501 Chronic embolism and thrombosis of unspecified deep veins of right lower extremity (principal) ==

== ENCOUNTER → 2018-10-06 | Outpatient (CLI) | payer OTHER, MEDICARE | LOC: BMCIMAGING 13:12 | PROVIDERS: ATTEND Internal Medicine | DX: R93.89 Abnormal findings on diagnostic imaging of other specified body structures (principal) ==